=== PATIENT | female | born 1985 | race Caucasian/White ===

== ENCOUNTER 2018-10-09 06:06 | Day surgery (SDC) | payer OTHER ==
[~2018-10-09] VITALS: Ht 132.1 cm; Wt 35.4 kg
[~2018-10-09 06:06] MED LIST: BCP; Coumadin5 MG PO
[2018-10-09] MEDS ORDERED: IBUP400 PO (06:55)
--- NOTE | 2018-10-09 09:50 | NUR ---
10/09/18 0950 Darby Caal PT PULLED AND FULLY REMOVED PERIPHERAL IV. SCANT BLEEDING. PT DID NOT CRY OR SHOW SIGNS OF DISTRESS. MOTHER AT BEDSIDE, ATTEMPTING TO STOP PT FROM PULLING ON LINE. NO REDNESS OR ABRASIONS AT SITE.
== END 2018-10-09 10:33 | disposition home or self-care (01) ==
LOC: ORSCSDS 06:06
PROVIDERS: Dentist Pediatric Dentistry
PROC: 0CDXXZ1 Extraction of Lower Tooth, Multiple, External Approach (ICD-10-PCS; principal; 2018-10-09 07:30)
PROC: 0CDWXZ1 Extraction of Upper Tooth, Multiple, External Approach (ICD-10-PCS; principal; 2018-10-09 07:30)
DX: K02.9 Dental caries, unspecified (principal); K05.10 Chronic gingivitis, plaque induced; Q92.9 Trisomy and partial trisomy of autosomes, unspecified; F88 Other disorders of psychological development; Z79.899 Other long term (current) drug therapy
CPT/HCPCS: J1100; J2250; J2370; J2405; J2704; J2710; J3010; J7120